=== PATIENT | female | born 1990 | race African-American/Black ===

== ENCOUNTER 2019-07-13 13:21 | Outpatient (CLI) | payer OTHER | END 2019-07-13 13:22 | disposition home or self-care (01) | LOC: COV 13:21 | PROVIDERS: ATTEND Family Medicine | DX: R05 Cough (principal); R50.9 Fever, unspecified | CPT/HCPCS: 81599 ==

== ENCOUNTER 2019-08-19 07:10 | Emergency (ER) | payer OTHER ==
--- NOTE | 2019-08-19 07:25 | ED Physician Documentation ---
PD HPI OPHTHO - Stated complaint Stated Complaint: R EYE PX - Chief complaint Chief Complaint: Heent - History obtained from History obtained from: Patient - History of Present Illness Timing - onset: Last night Timing - duration: Hours Timing - details: Abrupt onset, Still present Location: Right Quality / character: Aching Associated symptoms: FB sensation. No: Redness, Swelling, Discharge Contributing factors: Blunt trauma (she believes she accidentally rubbed her eyes and scratched herself while sleeping last night.), Wears glasses. No: Recent URI, FB, Wears contacts Recently seen: Not recently seen Review of Systems Constitutional: denies: Fever, Chills Eyes: reports: Photophobia, Irritation. denies: Decreased vision, Discharge Nose: denies: Rhinorrhea / runny nose, Congestion Throat: denies: Sore throat Respiratory: denies: Cough Skin: denies: Rash, Lesions PD PAST MEDICAL HISTORY - Past Medical History Cardiovascular: None Respiratory: None - Present Medications Home Medications: Ambulatory Orders Medication Instructions Recorded Confirmed Erythromycin Base [Erythromycin 1 applic OP QID #3.5 oint...g. 08/19/19 Ophthalmic Ointment] - Allergies Allergies/Adverse Reactions: Allergies Allergy/AdvReac Type Severity Reaction Status Date / Time No Known Drug Allergies Allergy Verified 08/19/19 07:20 PD ED PE NORMAL - Vitals Vital signs reviewed: Yes - General General: Alert and oriented X 3, No acute distress, Well developed/nourished PD ED PE EXPANDED - Eyes Eyes: PERRL, EOMI, Corneal abrasion (anterior eye over iris at 9 o'clock area of it. ), Fluorescein uptake, Anterior chambers clear, Normal fundi, Other (light sensitive, improved with Propraracaine). No: Eyelid swelling, Eyelid erythema, Exudate Results - Vitals Vitals: Vital Signs - 24 hr 08/19/19 08/19/19 07:20 08:14 Temperature 36.7 C 36.4 C L Heart Rate 73 66 Respiratory 18 16 Rate Blood Pressure 112/63 106/66 O2 Saturation 99 100 Oxygen O2 Source Room air PD MEDICAL DECISION MAKING - ED course Complexity details: considered differential, d/w patient Departure - Departure Disposition: 01 Home, Self Care Clinical Impression: Corneal abrasion Qualifiers: Encounter type: initial encounter Laterality: right Qualified Code(s): S05.01XA - Injury of conjunctiva and corneal abrasion without foreign body, right eye, initial encounter Condition: Stable Record reviewed to determine appropriate education?: Yes Instructions: ED Eye Injury Corneal Abrasion Prescriptions: Erythromycin Base [Erythromycin Ophthalmic Ointment] 1 applic OP QID #3.5 oint...g. Comments: Rest off work today. Rest your eyes as comfortable. You can use some ointment either lubricating eyedrops or antibiotic ointment to help soothe the abrasion. Tylenol or ibuprofen for pains as needed. This should improve over 1 to 2 days and be resolved within 2 to 3 days. Recheck if not. Forms: Activity restrictions Discharge Date/Time: 08/19/19 08:19
[2019-08-19] MEDS ORDERED: PROPARACAINE 0.5% OPHTH DROPS 15 ML EACHEYE STA (07:33)
[2019-08-19] MEDS ORDERED: ACETAMINOPHEN 325 MG TABLET PO STA (08:04)
[2019-08-19] MEDS ORDERED: ERYTHROMYCIN OPHTH OINT 1 GM TUBE RIGHTEYE STA (08:04)
[2019-08-19] MEDS ORDERED: IBUPROFEN 600 MG TABLET PO STA (08:04)
[2019-08-19 08:15] VITALS: BP 106/66
== END 2019-08-19 08:19 | disposition home or self-care (01) ==
LOC: ED 07:10
DX: S05.01XA Injury of conjunctiva and corneal abrasion without foreign body, right eye, initial encounter (principal); X58.XXXA Exposure to other specified factors, initial encounter; Y93.84 Activity, sleeping
CPT/HCPCS: 99282; 99283; A9270; J3490

== ENCOUNTER 2020-11-06 23:24 | Emergency (ER) | payer OTHER ==
[2020-11-06 23:57] VITALS: BP 117/72
[2020-11-07 00:29] LABS: GLUCOSE, URINE (UA) 250 mg/dL (NEGATIVE); KETONES,URINE (UA) TRACE mg/dL (NEGATIVE)
[2020-11-07 00:32] LABS: CLARITY,URINE CLEAR (CLEAR)
[2020-11-07 00:33] LABS: BILIRUBIN,URINE NEGATIVE (NEGATIVE); HCG UR QUAL POSITIVE; ICTOTEST,URINE NEGATIVE
[2020-11-07 00:40] LABS: BACTERIA,URINE Moderate /HPF (None Seen); SQUAMOUS EPITHELIAL CELL,UR NONE SEEN (<= Few); WBC,URINE >25 /HPF (0-5)
[2020-11-07] MEDS ORDERED: NITROFURANTOIN MACRO 100 MG CAPSULE PO STA (00:53)
--- NOTE | 2020-11-07 00:56 | ED Physician Documentation ---
PD HPI FEMALE - Stated complaint Stated Complaint: F - Chief complaint Chief Complaint: UTI - History obtained from History obtained from: Patient, Family - History of Present Illness Timing - onset: How many days ago (3) Timing - duration: Days (3) Timing - details: Gradual onset, Still present Associated symptoms: Dysuria, Urinary frequency. No: Abdominal pain, Back pain Contributing factors: Other (one day late on menses) Similar symptoms before: Diagnosis (UTI) Recently seen: Not recently seen - Additional information Additional information: 29-year-old female has developed urinary urgency frequency and dysuria over the past 3 days she has begun to take some Azo she has had a urinary tract infection before and she is come to the emergency department this evening for treatment. She is 1 day late on her menstrual period and she is developed some breast tenderness and she did not know that she was . Review of Systems Constitutional: denies: Fever Eyes: denies: Decreased vision Ears: denies: Ear pain Nose: denies: Congestion Throat: denies: Sore throat Cardiac: denies: Chest pain / pressure, Palpitations Respiratory: denies: Dyspnea, Cough GI: reports: Nausea. 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 : None HEENT: None Psych: None Musculoskeletal: None Derm: None - Past Surgical History Past Surgical History: No - Present Medications Home Medications: Ambulatory Orders Medication Instructions Recorded Confirmed Nitrofurantoin [Macrobid] 100 mg PO BID #10 cap 11/07/20 - Allergies Allergies/Adverse Reactions: Allergies Allergy/AdvReac Type Severity Reaction Status Date / Time No Known Drug Allergies Allergy Verified 11/06/20 23:57 - Social History Does the pt smoke?: Yes Smoking Status: Current every day smoker Does the pt drink ETOH?: Yes Does the pt have substance abuse?: No - Immunizations Immunizations are current?: Yes - POLST Patient has POLST: No PD ED PE NORMAL - Vitals Vital signs reviewed: Yes (Tachycardic) - General General: Alert and oriented X 3, No acute distress, Well developed/nourished - HEENT HEENT: Atraumatic, PERRL, EOMI - Neck Neck: Supple, no meningeal sign, No bony TTP - Cardiac Cardiac: RRR, No murmur - Respiratory Respiratory: No respiratory distress, Clear bilaterally - Abdomen Abdomen: Normal bowel sounds, Soft, Non tender, Non distended, No organomegaly - Back Back: No CVA TTP, No spinal TTP - Derm Derm: Normal color, Warm and dry, No rash - Extremities Extremities: No deformity, No edema - Neuro Neuro: Alert and oriented X 3, 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 ORANGE Urine Clarity CLEAR Urine pH 5.0 Ur Specific [place] >=1.030 H Urine Protein Urine Glucose (UA) 250 H Urine Ketones TRACE Urine Occult Blood Urine Nitrite Urine Bilirubin NEGATIVE Urine Urobilinogen Ur Leukocyte Esterase Urine RBC 11-25 H Urine WBC >25 H Ur Squamous Epith Cells NONE SEEN Urine Bacteria Moderate H Ur Microscopic Review INDICATED Urine Culture Comments INDICATED Urine HCG, Qual POSITIVE PD MEDICAL DECISION MAKING - ED course Complexity details: reviewed results, re-evaluated patient, considered cleopatra jefferson d/w patient, d/w family ED course: 29-year-old female with acute urinary tract infection is also found to be . She is 1 day late on her menses and she does acknowledge some breast tenderness. As well as some mild nausea. She denies pelvic cramping or pain. She and her appear excited about finding out about the . She is treated with Macrobid and referred to OB. Departure - Departure Disposition: 01 Home, Self Care Clinical Impression: Early stage of Urinary tract infection Qualifiers: Urinary tract infection type: acute cystitis Hematuria presence: with hematuria Qualified Code(s): N30.01 - Acute cystitis with hematuria Condition: Stable Instructions: ED Preg Morning Sickness, ED UTI Cystitis Female Follow-Up: [facility] [Provider Group] [facility] [Provider Group] Prescriptions: Nitrofurantoin [Macrobid] 100 mg PO BID #10 cap Discharge Date/Time: 11/07/20 01:10
== END 2020-11-07 01:10 | disposition home or self-care (01) ==
LOC: ED 23:24
DX: O23.41 Unspecified infection of urinary tract in pregnancy, first trimester (principal); Z3A.01 Less than 8 weeks gestation of pregnancy
CPT/HCPCS: 81001; 81025; 87077; 87086; 87181; 99283; A9270; 81003

== ENCOUNTER 2020-11-30 21:47 | Emergency (ER) | payer OTHER ==
[2020-11-30] MEDS ORDERED: SODIUM CHLORIDE 0.9% 1,000 ML IV STA (22:52)
[2020-11-30] MEDS ORDERED: ONDANSETRON 4 MG/2 ML VIAL IVP STA (23:27)
[2020-11-30 23:34] LABS: BASOPHILS % (AUTO) 0.4 %; EOSINOPHILS # (AUTO) 0.2 10^3/uL (0.0-0.7); EOSINOPHILS % (AUTO) 2.1 %; HCT - HEMATOCRIT 32.3 % (37.0-47.0); LYMPHOCYTES # (AUTO) 2.9 10^3/uL (1.5-3.5); LYMPHOCYTES % (AUTO) 41.2 %; MEAN CORPUSCULAR HEMOGLOBIN 31.1 pg (27.0-31.0); MEAN CORPUSCULAR HGB CONC 34.1 g/dL (32.0-36.0); MEAN CORPUSCULAR VOLUME 91.2 fL (81.0-99.0); MONOCYTES # (AUTO) 0.8 10^3/uL (0.0-1.0); MONOCYTES % (AUTO) 11.6 %; NEUTROPHILS # (AUTO) 3.2 10^3/uL (1.5-6.6); NEUTROPHILS % (AUTO) 44.6 %; PLT - PLATELET COUNT 174 10^3/uL (130-450); RED BLOOD COUNT 3.54 10^6/uL (4.20-5.40); RED CELL DISTRIBUTION WIDTH 11.9 % (12.0-15.0); WHITE BLOOD COUNT 7.1 x10^3/uL (4.8-10.8)
[2020-11-30 23:48] LABS: ALBUMIN/GLOBULIN RATIO 1.6 (1.0-2.2); BILIRUBIN,TOTAL 0.7 mg/dL (0.2-1.0); CALCIUM 8.5 mg/dL (8.5-10.3); CREATININE 0.5 mg/dL (0.4-1.0); POTASSIUM 3.3 mmol/L (3.5-5.0); TOTAL PROTEIN 6.5 g/dL (6.7-8.2)
--- NOTE | 2020-11-30 23:59 | ED Physician Documentation ---
History of Present Illness - Stated complaint Stated Complaint: N/V - Chief complaint Chief Complaint: Abd Pain - History obtained from History obtained from: Patient - Additonal information Additional information: Pt comes to the emergency department for chief complaint of nausea and vomiting that started today. She states she has had nausea for the last week or so and that she is 7 weeks , but has never experienced the intensity of nausea that she has today, nor has she vomited all day previously. Patient denies fevers or chills. No abdominal pain. No dysuria or back pain. She states 2 of her other kids have lingering coughs after cold, but no GI symptoms. Patient states this is her fourth and she has had some nausea previously but never anything like this. No other complaints at this time Review of Systems Ten Systems: 10 systems reviewed and negative Constitutional: reports: Reviewed and negative Eyes: reports: Reviewed and negative Ears: reports: Reviewed and negative Nose: reports: Reviewed and negative Throat: reports: Reviewed and negative Cardiac: reports: Reviewed and negative Respiratory: reports: Reviewed and negative GI: reports: Nausea, Vomiting : reports: Reviewed and negative Skin: reports: Reviewed and negative Musculoskeletal: reports: Reviewed and negative Neurologic: reports: Reviewed and negative Psychiatric: reports: Reviewed and negative Endocrine: reports: Reviewed and negative Immunocompromised: reports: Reviewed and negative PD PAST MEDICAL HISTORY - Past Medical History Past Medical History: Yes Cardiovascular: None Respiratory: None Neuro: None Endocrine/Autoimmune: None GI: None 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 : None HEENT: None Psych: None Musculoskeletal: None Derm: None - Past Surgical History Past Surgical History: No - Present Medications Home Medications: Ambulatory Orders Medication Instructions Recorded Confirmed Nitrofurantoin [Macrobid] 100 mg PO BID #10 cap 11/07/20 Ondansetron Odt [Zofran] 4 mg TL Q6H PRN #10 tablet 12/01/20 - Allergies Allergies/Adverse Reactions: Allergies Allergy/AdvReac Type Severity Reaction Status Date / Time No Known Drug Allergies Allergy Verified 11/30/20 22:00 - Social History Does the pt smoke?: Yes Smoking Status: Current every day smoker Does the pt drink ETOH?: Yes Does the pt have substance abuse?: No - Immunizations Immunizations are current?: Yes - POLST Patient has POLST: No PD ED PE NORMAL - Vitals Vital signs reviewed: Yes - General General: Alert and oriented X 3, No acute distress - HEENT HEENT: Atraumatic, PERRL, EOMI, Moist mucous membranes - Neck Neck: Supple, no meningeal sign - Cardiac Cardiac: RRR, No murmur, Strong equal pulses - Respiratory Respiratory: No respiratory distress, Clear bilaterally - Abdomen Abdomen: Soft, Non tender, Non distended - Back Back: No CVA TTP - Derm Derm: Normal color, Warm and dry, No rash - Extremities Extremities: No deformity, No edema - Neuro Neuro: Alert and oriented X 3, studio artist 2-12 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, Normal speech - Psych Psych: Normal mood, Normal affect Results - Vitals Vitals: Vital Signs - 24 hr 11/30/20 12/01/20 12/01/20 21:56 00:20 01:58 Temperature 36.6 C 37.1 C 37.1 C Heart Rate 74 63 65 Respiratory 14 16 15 Rate Blood Pressure 106/66 99/53 L 98/57 L O2 Saturation 100 100 100 12/01/20 02:16 Temperature Heart Rate Respiratory 15 Rate Blood Pressure O2 Saturation Oxygen O2 Source Room air - Labs Labs: Laboratory Tests 11/30/20 11/30/20 12/01/20 23:23 23:23 01:56 WBC 7.1 RBC 3.54 L Hgb 11.0 L Hct 32.3 L MCV 91.2 MCH 31.1 H MCHC 34.1 RDW 11.9 L Plt Count 174 MPV 11.0 H Neut # (Auto) 3.2 Lymph # (Auto) 2.9 [place] # (Auto) 0.8 Eos # (Auto) 0.2 Baso # (Auto) 0.0 Absolute Nucleated RBC 0.00 Nucleated RBC % 0.0 Sodium 135 Potassium 3.3 L Chloride 104 Carbon Dioxide 22 Anion Gap 9.0 BUN 8 Creatinine 0.5 Estimated GFR (MDRD) 178 Glucose 85 Calcium 8.5 Total Bilirubin 0.7 AST 14 ALT 15 Alkaline Phosphatase 37 L Total Protein 6.5 L Albumin 4.0 Globulin 2.5 Albumin/Globulin Ratio 1.6 Lipase 21 L Urine Color YELLOW Urine Clarity CLEAR Urine pH 6.0 Ur Specific [place] 1.010 Urine Protein NEGATIVE Urine Glucose (UA) NEGATIVE Urine Ketones 15 H Urine Occult Blood NEGATIVE Urine Nitrite NEGATIVE Urine Bilirubin NEGATIVE Urine Urobilinogen 0.2 (NORMAL) Ur Leukocyte Esterase NEGATIVE Ur Microscopic Review NOT INDICATED Urine Culture Comments NOT INDICATED PD MEDICAL DECISION MAKING - ED course Complexity details: reviewed results, re-evaluated patient, considered differential, d/w patient ED course: Pt was treated symptomatically with IV fluids, Zofran And Phenergan. She was found to be feeling quite a bit better on reevaluation I felt she was stable for discharge home. She has already begun the process of establishing with a corrugated sheet material sheeter. I am prescribing her Zofran for home which she may take as needed. We have discussed clear liquid diet and advancement of diet as tolerated and the usual indications for return. Departure - Departure Disposition: , Self Care Clinical Impression: Vomiting Qualifiers: Vomiting type: bilious vomiting Nausea presence: with nausea Qualified Code(s): R11.14 - Bilious vomiting Condition: Stable Instructions: ED Nausea Vomiting Prescriptions: Ondansetron Odt [Zofran] 4 mg TL Q6H PRN #10 tablet PRN Reason: Nausea / Vomiting Comments: It is not clear whether your nausea and vomiting today are due to your or if you perhaps picked up on the many viruses that are going around right now. Either way, you may take the nausea medicine prescribed as needed. When you are feeling well enough, you may take clear liquids little by little and if you keep these down, you may try eating food again. Please follow-up with the corrugated sheet material sheeter as planned. Forms: Activity restrictions
[2020-12-01] MEDS ORDERED: ONDANSETRON ODT 4 MG Prepack 2 TL PRN (01:38)
[2020-12-01] MEDS ORDERED: PROMETHAZINE INJ 25 MG in SODIUM CHLORIDE 0.9% 50 ML IV STA (01:50)
[2020-12-01] MEDS ORDERED: PROMETHAZINE 25 MG/1 ML VIAL ONE (01:57)
[2020-12-01 01:58] VITALS: BP 98/57
[2020-12-01 01:59] LABS: BILIRUBIN,URINE NEGATIVE (NEGATIVE); GLUCOSE, URINE (UA) NEGATIVE (NEGATIVE); KETONES,URINE (UA) 15 mg/dL (NEGATIVE); LEUKOCYTE ESTERASE, URINE NEGATIVE (NEGATIVE); NITRITE,URINE NEGATIVE (NEGATIVE); OCCULT BLOOD,URINE NEGATIVE (NEGATIVE); PROTEIN,URINE NEGATIVE (NEGATIVE); UROBILINOGEN,URINE 0.2 (NORMAL) E.U./dL (NORMAL)
[2020-12-01 02:03] LABS: CLARITY,URINE CLEAR (CLEAR)
== END 2020-12-01 02:34 | disposition home or self-care (01) ==
LOC: ED 21:47
DX: O26.891 Other specified pregnancy related conditions, first trimester (principal); R11.2 Nausea with vomiting, unspecified; O99.331 Smoking (tobacco) complicating pregnancy, first trimester; F17.200 Nicotine dependence, unspecified, uncomplicated; Z3A.01 Less than 8 weeks gestation of pregnancy
CPT/HCPCS: 36415; 80053; 81003; 83690; 85025; 96365; 96375; 99284; J7040; 81001; 87086